=== PATIENT | female | born 1960 | race Caucasian/White ===

== ENCOUNTER → 2020-05-15 | Outpatient (CLI) | payer OTHER ==
[~2020-05-15] MED LIST: REGADENOSON 0.4 MG/5 ML SYRINGE ONE
== END | disposition home or self-care (01) ==
LOC: CFH 07:19
PROVIDERS: ATTEND Internal Medicine Cardiovascular Disease
DX: Z01.810 Encounter for preprocedural cardiovascular examination (principal); I10 Essential (primary) hypertension
CPT/HCPCS: 78452; 93017; A9502; J2785

== ENCOUNTER → 2020-06-17 | Outpatient (CLI) | payer OTHER | END | disposition home or self-care (01) | LOC: CVU 08:41 | PROVIDERS: ATTEND Physician Assistant Medical | DX: Z01.810 Encounter for preprocedural cardiovascular examination (principal); I25.10 Atherosclerotic heart disease of native coronary artery without angina pectoris | CPT/HCPCS: 93306 ==

== ENCOUNTER 2020-06-23 06:32 | Day surgery (SDC) | payer OTHER ==
[~2020-06-23] VITALS: Ht 175.3 cm; Wt 90.0 kg
[2020-06-23] MEDS ORDERED: SODIUM CHLORIDE 0.9% 1,000 ML IV SCH (07:30)
[2020-06-23 07:31] VITALS: BP 133/88
[2020-06-23] MEDS ORDERED: ISOPROTERENOL 0.2MG/ML, 5ML ONE (07:31)
[2020-06-23] MEDS ORDERED: FENTANYL PF 100 MCG/2ML ONE (07:31)
[2020-06-23] MEDS ORDERED: MIDAZOLAM 1 MG/ML, 5ML ONE (07:31)
[2020-06-23] MEDS ORDERED: ADENOSINE 6 MG/2 ML ONE (07:31)
[2020-06-23] MEDS ORDERED: LIDOCAINE 2%, 20ML ONE (07:31)
[2020-06-23] MEDS ORDERED: FLEC100T PO (07:43)
[2020-06-23] MEDS ORDERED: TELM40TA PO (07:43)
[2020-06-23] MEDS ORDERED: METO-93 PO (07:43)
[2020-06-23 07:59] LABS: BASOPHILS % (AUTO) 1 % (0-1); EOSINOPHILS % (AUTO) 2 % (1-7); LYMPHOCYTES % (AUTO) 21 % (22-44); MEAN CORPUSCULAR HEMOGLOBIN 31.8 pg (27.0-34.8); MEAN CORPUSCULAR HGB CONC 33.6 g/dL (32.4-35.8); MEAN PLATELET VOLUME 7.9 fL (7.4-10.4); MONOCYTES % (AUTO) 7 % (2-9); NEUTROPHILS % (AUTO) 70 % (42-75); PLATELET COUNT 173 x10^3/uL (130-400); RED BLOOD COUNT 4.65 x10^6/uL (3.82-5.3); RED CELL DISTRIBUTION WIDTH 13.6 % (9.6-15.2)
[2020-06-23 08:07] LABS: MD NO
[2020-06-23 08:28] LABS: ANION GAP 7 mmol/L (5-15); CHLORIDE 111 mmol/L (98-107); CREATININE 0.79 mg/dL (0.55-1.02); INTERNATIONAL NORMALIZED RATIO 0.96 (0.93-1.1); PROTHROMBIN TIME 10.3 Seconds (9.6-11.5)
== END 2020-06-23 15:51 | disposition home or self-care (01) ==
LOC: CACL 06:32
PROVIDERS: ATTEND Internal Medicine Clinical Cardiac Electrophysiology
DX: I47.1 Supraventricular tachycardia (principal); I10 Essential (primary) hypertension; Z79.899 Other long term (current) drug therapy
CPT/HCPCS: 36415; 76937; 80048; 85025; 85610; 93613; 93621; 93623; 93653; 99156; 99157; C1730; C1766; C1894; C2630; J2250; J3010; J0153

== ENCOUNTER → 2020-08-18 | Outpatient (CLI) | payer OTHER ==
[~2020-08-18] MED LIST changes: +FLEC100T PO; +IBUP200C8 PO; +METO-93 PO; +NONE PER PT; -REGADENOSON 0.4 MG/5 ML SYRINGE ONE; +TELM40TA PO
[2020-08-18 15:18] LABS: ALANINE AMINOTRANSFERASE 33 U/L (12-78); ALBUMIN 3.7 g/dL (3.4-5.0); ANION GAP 5 mmol/L (5-15); CALCIUM 9.5 mg/dL (8.5-10.1); CHLORIDE 109 mmol/L (98-107); CREATININE 0.75 mg/dL (0.55-1.02)
[2020-08-18 15:20] LABS: ALKALINE PHOSPHATASE 73 U/L (45-117); BILIRUBIN,TOTAL 0.2 mg/dL (0.2-1.0); TOTAL PROTEIN 7.7 g/dL (6.4-8.2)
[2020-08-18 15:29] LABS: INTERNATIONAL NORMALIZED RATIO 0.91 (0.93-1.1); PROTHROMBIN TIME 9.8 Seconds (9.6-11.5)
[2020-08-18 15:48] LABS: BASOPHILS % (AUTO) 1 % (0-1); EOSINOPHILS % (AUTO) 2 % (1-7); LYMPHOCYTES % (AUTO) 29 % (22-44); MEAN CORPUSCULAR HEMOGLOBIN 31.7 pg (27.0-34.8); MEAN CORPUSCULAR HGB CONC 33.6 g/dL (32.4-35.8); MEAN PLATELET VOLUME 8.4 fL (7.4-10.4); MONOCYTES % (AUTO) 8 % (2-9); NEUTROPHILS % (AUTO) 60 % (42-75); PLATELET COUNT 200 x10^3/uL (130-400); RED BLOOD COUNT 4.66 x10^6/uL (3.82-5.3); RED CELL DISTRIBUTION WIDTH 14.3 % (9.6-15.2)
[2020-08-18 15:50] LABS: MD NO
== END | disposition home or self-care (01) ==
LOC: STAR 14:02
PROVIDERS: ATTEND Orthopaedic Surgery
DX: Z01.810 Encounter for preprocedural cardiovascular examination (principal); Z01.818 Encounter for other preprocedural examination; M16.12 Unilateral primary osteoarthritis, left hip; M25.552 Pain in left hip; I44.4 Left anterior fascicular block; Z20.822 Contact with and (suspected) exposure to COVID-19; Z79.01 Long term (current) use of anticoagulants
CPT/HCPCS: 36415; 80053; 83036; 85025; 85610; 85730; 87081; 87147; 87806; 93005; U0003; G0475

== ENCOUNTER 2020-08-22 06:41 | Day surgery (SDC) | payer OTHER ==
[~2020-08-22] VITALS: Ht 175.3 cm; Wt 97.0 kg
[2020-08-22] MEDS ORDERED: ONDANSETRON 4 MG TABLET PO PRN (07:00)
[2020-08-22] MEDS ORDERED: LACTATED RINGERS 1,000 ML IV SCH ×2 (07:00→09:30)
[2020-08-22] MEDS ORDERED: CEFAZOLIN PMX 1GM/50ML 50 ML IVPB SCH (07:00)
[2020-08-22] MEDS ORDERED: KETOROLAC 30 MG/1 ML IV SCH (07:00)
[2020-08-22] MEDS ORDERED: OXYcodone IR 5MG TABLET PO PRN ×2 (07:00)
[2020-08-22] MEDS ORDERED: ACETAMINOPHEN 325 MG TABLET PO SCH (07:00)
[2020-08-22] MEDS ORDERED: ONDANSETRON 2MG/ML, 2ML IVPush PRN (07:00)
[2020-08-22] MEDS ORDERED: HYDROmorphone 1 MG/ML, 1ML INJ IVPush PRN ×2 (07:00→11:30)
[2020-08-22] MEDS ORDERED: SENNA/DOCUSATE TABLET PO PRN (07:00)
[2020-08-22] MEDS ORDERED: ROPIvacaine/PF 0.2%, 20 ML ONE (07:41)
[2020-08-22] MEDS ORDERED: VANCOMYCIN 1,000 MG ONE (07:41)
[2020-08-22] MEDS ORDERED: TRANEXAMIC ACID 100 MG/ML, 10ML ONE (07:41)
[2020-08-22] MEDS ORDERED: KETOROLAC 60 MG/2 ML ONE (07:41)
[2020-08-22] MEDS ORDERED: ASPIRIN 81 MG TABLET EC PO SCH (09:00)
[2020-08-22] MEDS ORDERED: DOCUSATE 100 MG CAPSULE PO SCH (09:00)
[2020-08-22] MEDS ORDERED: MIDAZOLAM 1 MG/ML, 2ML ONE (09:18)
[2020-08-22] MEDS ORDERED: FENTANYL PF 250 MCG/5ML ONE (09:18)
[2020-08-22] MEDS ORDERED: CHLORHEXIDINE 15 ML UDC ONE (09:21)
[2020-08-22] MEDS ORDERED: CHLORHEXIDINE 15 ML UDC PO ONE (09:30)
[2020-08-22] MEDS ORDERED: ACETAMINOPHEN 500 MG TABLET PO ONE (09:30)
[2020-08-22] MEDS ORDERED: GABAPENTIN 300 MG CAPSULE PO ONE (09:30)
[2020-08-22] MEDS ORDERED: TRAMADOL PO (09:54)
[2020-08-22] MEDS ORDERED: METOPROLOL PO (09:54)
[2020-08-22] MEDS ORDERED: EPINEPHRINE 1 MG/ML, 1ML ONE (09:55)
[2020-08-22 09:57] VITALS: BP 164/96
[2020-08-22] MEDS ORDERED: COLLAGEN PO (09:57)
[2020-08-22] MEDS ORDERED: VIT C PO (09:57)
[2020-08-22] MEDS ORDERED: EPHEDRINE 50 MG/ML, 1ML ONE (10:54)
[2020-08-22] MEDS ORDERED: OXYcodone 5 MG/5 ML ORAL.SOL UDC PO PRN (11:30)
[2020-08-22] MEDS ORDERED: LABETALOL 5MG/ML, 20ML IV PRN (11:30)
[2020-08-22] MEDS ORDERED: MEPERIDINE/PF 25MG/0.5ML IVPush PRN (11:30)
[2020-08-22] MEDS ORDERED: ALBUTEROL SULFATE 2.5 MG/3 ML NPPB PRN (11:30)
[2020-08-22] MEDS ORDERED: PROMETHAZINE 25 MG/ML, 1ML IVPush PRN (11:30)
[2020-08-22] MEDS ORDERED: hydrALAzine 20 MG/ML, 1ML IV PRN (11:30)
[2020-08-22] MEDS ORDERED: ACETAMINOPHEN 325 MG TABLET PO PRN (11:30)
[2020-08-22] MEDS ORDERED: LORazepam 2 MG/ML, 1ML IVPush PRN (11:30)
[2020-08-22] MEDS ORDERED: GLYCOPYRROLATE 0.2MG/1ML, 5ML ONE (11:44)
[2020-08-22] MEDS ORDERED: ROCURONIUM 10MG/ML,5ML ONE (11:44)
[2020-08-22] MEDS ORDERED: DEXAMETHASONE 4 MG/ML, 5ML ONE (11:44)
[2020-08-22] MEDS ORDERED: NEOSTIGMINE 1 MG/ML, 10ML ONE (11:44)
[2020-08-22] MEDS ORDERED: HYDROmorphone 1 MG/ML, 1ML INJ ONE (11:44)
[2020-08-22] MEDS ORDERED: PROPOFOL 10 MG/ML, 20ML ONE (11:44)
[2020-08-22] MEDS ORDERED: CEFAZOLIN 1,000 MG ONE (11:44)
[2020-08-22] MEDS ORDERED: LIDOCAINE-MPF 2% ,5ML ONE (11:44)
[2020-08-22] MEDS ORDERED: ONDANSETRON 2MG/ML, 2ML ONE (11:44)
[2020-08-22] MEDS ORDERED: FENTANYL PF 100 MCG/2ML ONE ×2 (12:39→13:15)
[2020-08-22] MEDS: FENTANYL PF 100 MCG/2ML IV PRN ×3 (12:41→13:16)
[2020-08-22] MEDS ORDERED: OXYcodone 5 MG/5 ML ORAL.SOL UDC ONE (12:51)
[2020-08-22] MEDS ORDERED: TRANEXAMIC ACID 1,500 MG in SODIUM CHLORIDE 0.9% 100 ML IV ONE (13:00)
[2020-08-22] MEDS ORDERED: TRANEXAMIC ACID 1,000 MG in SODIUM CHLORIDE 0.9% 100 ML IVPB ONE (13:30)
== END 2020-08-22 16:55 | disposition home or self-care (01) ==
LOC: OUT 06:41 → ORIP 07:03 → UNDOADMOB 07:03
PROVIDERS: ATTEND Orthopaedic Surgery
DX: M16.12 Unilateral primary osteoarthritis, left hip (principal); M25.552 Pain in left hip; E66.9 Obesity, unspecified; Z72.89 Other problems related to lifestyle; Z68.31 Body mass index [BMI] 31.0-31.9, adult; Z79.899 Other long term (current) drug therapy; Z85.41 Personal history of malignant neoplasm of cervix uteri; Z98.890 Other specified postprocedural states
CPT/HCPCS: 27130; 36415; 73502; 86850; 86900; 97162; C1713; C1776; J0171; J0690; J1100; J1170; J1885; J2250; J2405; J2704; J2710; J2795; J3010; J7120; J3370